=== PATIENT | female | born 2000 | race Caucasian/White ===

== ENCOUNTER → 2023-05-28 14:54 | Outpatient (CLI) | payer OTHER, SELFPAY ==
--- NOTE | 2023-05-28 | DI.US.S_ITS ---
PROCEDURE: US OB LIMITED INDICATIONS: GROWTH OUTSIDE/PRIOR DATING DATA: Last menstrual period (LMP): 11/15/2022. LMP-based estimated date of delivery (DONAVON): 08/22/2023. First dating scan (date and location): Unknown. Estimated date of delivery (DONAVON) from first dating scan: Unknown. The calculations are made using the working DONAVON of 08/22/2023. TECHNIQUE: Real-time scanning was performed of the fetus, with image documentation. Endovaginal scanning: None COMPARISON: None. FINDINGS: A single living intrauterine gestation is present. Presentation: Vertex. Placenta: Placental position is posterior, without previa. Amniotic fluid index: 15.4 cm, normal range is 5-24 cm. Single deepest vertical pocket is 4.3 cm. heart rate: 149 beats per minute. Maternal cervical canal: 3.2 cm long. Normal lower limit is 2.5 cm. BPD 7.6 cm, 30 week 5 day HC 28 cm, 30 week 4 day AC 24.8 cm, 29 week 0 day FL 5.5 cm, 29 week 1 day Clinically estimated gestational age: 27 week 5 day Estimated gestational age from initial scan: 29 week 6 day. EFW 1380, 93 percentile 2 vessel cord identified. IMPRESSION: Single live degenerative consistent with 29 week 6 day gestation. Two vessel cord EFW 93 percentile Approved by: Geovany Zavaleat M.D. on 05/28/2023 at 19:34
== END ==
PROVIDERS: Referring Provider Nurse Practitioner Obstetrics & Gynecology; Visit Provider Nurse Practitioner Obstetrics & Gynecology
DX: O09.93 Supervision of high risk pregnancy, unspecified, third trimester (principal); O28.3 Abnormal ultrasonic finding on antenatal screening of mother; Z3A.29 29 weeks gestation of pregnancy
CPT/HCPCS: 76815

== ENCOUNTER → 2023-07-23 10:18 | Outpatient (CLI) | payer OTHER, SELFPAY ==
--- NOTE | 2023-07-23 10:20 | DI.US.S_ITS ---
PROCEDURE: US OB LIMITED INDICATIONS: GROWTH OUTSIDE/PRIOR DATING DATA: Last menstrual period (LMP): November 15, 2022. LMP-based estimated date of delivery (DONAVON): August 22, 2023. First dating scan (date and location): May 28, 2023, [facility]. Estimated date of delivery (DONAVON) from first dating scan: August 22, 2023 TECHNIQUE: Real-time scanning was performed of the fetus, with image documentation and biometric measurements. Endovaginal scanning: Not performed COMPARISON: [facility], , OB LIMITED, 05/28/2023, 15:14. FINDINGS: General: A single living intrauterine gestation is present. Presentation: Vertex. Placenta: Placental position is posterior , without previa. Amniotic fluid index: 13.2 cm, normal range is 5-24 cm. Single deepest vertical pocket is 4.8 cm. heart rate: 125 beats per minute. Maternal cervical canal: 3.6 cm long. Normal lower limit is 2.5 cm. biometrics: Biparietal diameter: 9.5 cm, 38 weeks 6 days Head circumference: 34.7 cm, 40 weeks 2 days Abdominal circumference: 32.9 cm, 36 weeks 6 days Femur length: 7.3 cm, 37 weeks 2 days Clinically estimated gestational age: 35 weeks 5 days Composite gestational age from present scan: 38 weeks 2 days Estimated weight and percentile: 3139 g, 84% Other: Not applicable. IMPRESSION: 1. Single live intrauterine gestation with a composite gestational age of 38 weeks, 2 days which is concordant with dates by initial scan. 2. Estimated weight percentile of 84%. We strive to produce accurate, complete, and clear reports of imaging services. To assist us in improving patient care, this report was composed using standard report templates and voice recognition software. Therefore, it may contain abnormal punctuation, insertions and/or omissions. Occasional wrong-word or sound-alike substitutions may occur. Though we review the report and make efforts to correct it, we do recommend that the report be read carefully in proper context to recognize any text inaccuracies. Dictated by: Jeanette Malone M.D. on 07/23/2023 at 17:08 Approved by: Jeanette Malone M.D. on 07/23/2023 at 17:11
== END ==
PROVIDERS: Referring Provider Nurse Practitioner Obstetrics & Gynecology; Visit Provider Nurse Practitioner Obstetrics & Gynecology
DX: O09.93 Supervision of high risk pregnancy, unspecified, third trimester (principal); O28.3 Abnormal ultrasonic finding on antenatal screening of mother; Z3A.38 38 weeks gestation of pregnancy
CPT/HCPCS: 76815

== ENCOUNTER 2023-08-09 09:01 | Inpatient (IN) | payer OTHER, MEDICAID, SELFPAY ==
--- NOTE | 2023-08-09 10:26 | P.HPOB_ITS ---
OB HPI Date/Time Date of admission: 08/09/23 Date Patient Seen: 08/09/23 Time Patient Seen: 10:00 History of Present Condition Chief complaint: L&D : 1 Para: 0 Estimated Date of Delivery: 08/22/23 Estimated Gestational Age (weeks): 38w1d Narrative: Leena Roblero is a 22 year old female at 38 weeks 1 day by unsure LMP, concordant with 9 week US. 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 She started Valacyclovir around 37 weeks for HSV II suppression. She did not have health insurance for most of her but enrolled in [id number] 2 days ago. At approximately 0230 this AM she noticed some bloody show. At 0430 she woke up to wet sheets under her and messaged CNM at 0730 to let us know. On arrival to L&D at approximately 0900, amnisure test was positive and fluid clear. She is feeling intermittent contractions, but they are not strong or regular, and is feeling movement. CNM discussed options for expectant management at home versus admission now with or without augmentation with pitocin. Leena would like to stay and initiate IV pitocin for augmentation of labor. Her dad and FOB will be joining her at soon. She is in good spirits, and feeling nervous and excited to meet baby Berta. History of Present care: good care, initiated at week # (9), number of visits (9) and pounds weight gain (33) Dating criteria: LMP confirmed by 1st trimester US Ultrasounds: normal 1st trimester US and abnormal US findings Abnormal ultrasound findings: Two vessel cord seen at 20-week ultrasound Obstetrical complications: other (Single Umbilical Artery) Medical complications: other (HSV II) Preadmission Labs Blood type: A (+) positive -: Antibody screen: negative, Cystic fibrosis screen: unknown, GBS status: negative, HBsAG: negative, HIV: negative, HSV 1: unknown, HSV 2: unknown and RPR/VDLR: negative -: Chlamydia screen: not detected and Gonorrhea screen: not detected -: Rubella: immune and Varicella: immune HCT: 33.4 HCAB: negative PAP: Normal (Has never had pap smear) Integrated screen: NIPS negative 1 hr GTT: 97 Prior (ies) History: Evaluation Evaluation Baseline heart rate: 125 Variability: Moderate (11-25) monitor accelerations: Absent Monitor Decelerations: Variable Contraction Frequency (minutes): 5 (5-7) Uterine Contraction Intensity: Moderate Status: Category ll Non-invasive Membranes Rupture Test: positive (Clear fluid) Comments: Cervical exam deferred due to PROM; CE on 07/30/23 1.5/50/-4 PFSH Medical History HSV (herpes simplex virus) anogenital infection Seizures Migraine without aura Anxiety Family History (Updated 08/09/23 @ 11:08 by Jyothi Viera CNM, JAY) Aunt Cancer Grandmother Heart disease Diabetes mellitus Social History marital status: unmarried,single number of children: 0 household members: family lives independently: No caregiver/support person: No occupational status: unemployed do you feel safe at home: Yes Smoking Status: Former smoker additional social history: Used marijuana prior to Meds Home Medications and Allergies Home Medications Medication Instructions Recorded Confirmed Type valacyclovir 500 mg tablet 500 mg PO Q12H 08/09/23 08/09/23 History Allergies Allergy/AdvReac Type Severity Reaction Status Date / Time Milk Containing Products AdvReac Mild Verified 08/09/23 11:42 (Dairy) Review of Systems Review of Systems ROS: Yes All systems reviewed with the patient and are negative except as otherwise documented OB Exam Vital signs Blood Pressure: 107/69 Pulse Rate: 65 Temperature: 97.0 F Resp Effort & Inspection: normal respiratory effort and able to speak in complete sentences Auscultation: clear to auscultation bilaterally Cardio Rate: regular rate Rhythm: regular rhythm Heart Sounds: S1 normal and S2 normal Presentation: vertex (by bedside ultrasound) Amniotic Fluid: clear Objective Labs 08/09/23 10:30 Assessment and Plan Assessment and Plan Assessment and Plan narrative: Assessment: Early labor of term primip Rh positive SROM at 0430 GBS negative Repeat GC/CT testing indicated vertex RAYMOND presentation, non-flexed FHR Cat 2 Plan: Admit to labor Augmentation of labor with pitocin Continuous monitoring Recommend Leena sit on ball to promote head flexion Epidural when contractions become painful Repeat GC/CT testing d/t risk for STI Anticipate NSVB Note signed late due to awaiting health insurance confirmation.
[2023-08-09 10:38] LABS: Add Manual Diff / Slide Review NO; Basophils Absolute Auto 0 /uL (0-100); Basophils Percent Auto 0.5 % (0-2); Eosinophils Absolute Auto 0 /uL (0-450); Eosinophils Percent Auto 0.5 % (2-4); Hematocrit 36.8 % (36-46); Hemoglobin 12.4 g/dL (12.0-16.0); Lymphocytes Absolute Auto 1700 /uL (1100-4500); Lymphocytes Percent Auto 20.9 % (25-40); Mean Corpuscular HGB Conc 33.7 % (30-36); Mean Corpuscular Hemoglobin 30.9 PG (26-34); Mean Corpuscular Volume 91.7 fL (80-100); Monocytes Absolute Auto 700 /uL (0-900); Monocytes Percent Auto 9.2 % (3-14); Neutrophils Absolute Auto 5600 /uL (1500-7000); Neutrophils Percent Auto 68.9 % (50-75); Platelet Count 291 X10^3/uL (150-400); Red Blood Cell Count 4.01 X10^6/uL (4.0-5.2); Red Cell Distribution Width 13.3 % (11.6-14.8); White Blood Cell Count 8.1 X10^3/uL (4.5-11.0)
[2023-08-09] MEDS: LACTATED RINGERS 1,000 ML 100 ML IV (10:58)
[2023-08-09] MEDS: OXYTOCIN PREMIX 30 UNIT/500 ML PLAST..BAG IV (10:58)
[2023-08-09 11:27] VITALS: BP 107/69; PULSE 65; TEMP 36.1
[2023-08-09] MEDS: ONDANSETRON 4 MG/2 ML INJ IV ×2 (15:18→21:05)
--- NOTE | 2023-08-09 16:11 | PM.AN.REGBLK ---
Regional Block Pre-procedure Procedure: Continuous Lumbar Epidural for L&D (with dural puncture ) Attending OB provider: Jyothi Viera PMH/ROS narrative: 22yo female in labor requesting epidural. See pre-anesthesia assessment for further details. ASA Class: II Labs: Hct 36.8 % (36-46) 08/09/23 10:30 Plt Count 291 X10^3/uL (150-400) 08/09/23 10:30 Medications: Current Medications Generic Name Dose Route Start Last Admin Trade Name Freq PRN Reason Stop Dose Admin Acetaminophen 650 mg 08/09/23 10:22 Acetaminophen 325 Mg Tablet PO Q4H PRN Fever/Mild Pain (1-3) Calcium Carbonate 1,000 mg 08/09/23 10:22 Calcium Carbonate 500 Mg Tab PO Q4HR PRN Dyspepsia Carboprost Tromethamine 250 mcg 08/09/23 10:22 Carboprost 250 Mcg/Ml Ampul IM Q90M PRN Bleeding Diphenhydramine HCl 25 mg 08/09/23 15:36 Diphenhydramine 50 Mg/Ml Vial IV Q10M PRN Pruritis Ephedrine Sulfate 10 mg 08/09/23 15:36 Ephedrine 50 Mg/Ml Vial IV Q5M PRN Blood pressure decrease more than 20% of baseline. Fentanyl 50 mcg 08/09/23 10:22 Fentanyl 100 Mcg/2 Ml Inj IV Q1H PRN Pain, Moderate (4-6) Oxytocin/Lactated Ringer's 30 unit in 500 mls @ 200 mls/hr 08/09/23 10:22 Oxytocin Premix IV CONT PRN Bleeding Protocol Tranexamic Acid 1,000 mg/ 100 mls @ 200 mls/hr 08/09/23 10:22 Sodium Chloride IV NOW PRN Bleeding Oxytocin/Lactated Ringer's 30 unit in 500 mls @ 2 mls/hr 08/09/23 10:30 08/09/23 10:58 Oxytocin Premix IV 2 milliunit/min TITRATE KRUPA 2 mls/hr Administration Protocol 2 MILLIUNIT/MIN Lactated Ringer's 1,000 mls @ 100 mls/hr 08/09/23 10:30 08/09/23 10:58 Lactated Ringers IV 100 mls/hr CONT KRUPA Administration FENT 2MCG/ML BUPIV 0.125% EPI 200 mcg in 100 mls @ 6 mls/hr 08/09/23 15:45 Fentanyl/Bupiv/Ns 2mcg/Ml - 0.125% EPIDURAL CONT KRUPA Lidocaine HCl 20 ml 08/09/23 10:22 Lidocaine 1% 20 Ml INJ INTRA-OP PRN Post Delivery Methylergonovine Maleate 0.2 mg 08/09/23 10:22 Methylergonovine 0.2 Mg Tablet PO Q6HR PRN Heavy Bleeding Methylergonovine Maleate 0.2 mg 08/09/23 10:22 Methylergonovine 0.2 Mg/Ml Vial IM NOW PRN Bleeding Mineral Oil 30 ml 08/09/23 10:22 Mineral Oil 30 Ml Udc TOP PRN PRN Version Misoprostol 800 mcg 08/09/23 10:22 Misoprostol 200 Mcg Tablet UT NOW PRN Bleeding Misoprostol 400 mcg 08/09/23 10:22 Misoprostol 200 Mcg Tablet SL NOW PRN Bleeding Nalbuphine HCl 2.5 mg 08/09/23 15:36 Nalbuphine 20 Mg/Ml Ampul IV Q10M PRN Pruritis Naloxone HCl 0.2 mg 08/09/23 10:22 Naloxone 0.4 Mg/Ml Vial IV Q2MIN PRN Opiate Reversal Ondansetron HCl 4 mg 08/09/23 10:22 08/09/23 15:18 Ondansetron 4 Mg/2 Ml Inj IV 4 mg Q4HR PRN Administration Nausea And Vomiting Oxytocin 10 unit 08/09/23 10:22 Oxytocin 10 Unit/Ml Vial IM NOW PRN Bleeding Sodium Chloride 10 ml 08/09/23 21:00 Sodium Chloride 0.9% Flush IV BID KRUPA Sodium Chloride 10 ml 08/09/23 10:22 Sodium Chloride 0.9% Flush IV PRN PRN Flush Valacyclovir HCl 500 mg 08/09/23 21:00 Valacyclovir 500 Mg Tablet PO BID [facility] Allergies: Allergies Allergy/AdvReac Type Severity Reaction Status Date / Time Milk Containing Products AdvReac Mild Verified 08/09/23 11:42 (Dairy) Procedure Insertion date: 08/09/23 Insertion time: 15:22 Prep/Local: 1% lidocaine (Chloraprep) Interspace: L3-4 Patient position: sitting Needle: 18 gauge Meñotead Loss of resistance with: saline CARLOS at (cm): 5 Catheter placed at SKIN (cm): 12 Catheter in SPACE (cm): 7 Insertion: Yes CSF, No Blood, Yes Paresthesia with insertion, No Paresthesia with injection and No Test dose reaction Initial Medications TEST DOSE time: 15:23 TEST DOSE: 1.5% lidocaine with epinephrine 1:200k (mL): 3 BOLUS DOSE time: 15:24 BOLUS DOSE (mL): 2 BOLUS DOSE med: other (Same) Infusion INFUSION: 0.125% bupivacaine and with fentanyl 2 mcg/mL Initial rate (mL/hr): 8 Subsequent interventions: Pump started 15:35. Pt is cheerful, moving BLE, and reports much improved labor pain. 19:25 - Checked on pt. Cheerful, moving BLE. Reports occ feeling contractions and some hip pain that sounds more musculoskeletal from lying in bed. Epidural rate increased from 8 to 10 but no other changes made. KR Post-procedure Anesthesia date START: 08/09/23 Anesthesia time START: 15:15 Anesthesia date END: 08/09/23 Anesthesia time END: 22:23 Post-procedure Anesthesia Assessment: Yes CV function: HR/BP stable, Yes Resp function: RR/sat/airway adequate, Yes Post-op hydration adequate, Yes Pain control adequate, Yes Nausea & vomiting absent, Yes Temperature > 36 C, Yes Mental status appropriate and No Anesthesia complications
[2023-08-09 19:01] LABS: Urine N gonorrhoeae NOT DETECTED
[2023-08-09 19:03] LABS: Urine Chlamydia NOT DETECTED
[2023-08-09] MEDS: FENT 2MCG/ML BUPIV 0.125% EPI 200 MCG/100 ML PLAST..BAG 6 MCG EPIDURAL (20:38)
[2023-08-09] MEDS: valACYclovir 500 MG TABLET PO (21:05)
--- NOTE | 2023-08-09 23:04 | PM.OBPRVD ---
Events: Labor Augmentation and Meconium Stained Fluid Labor & Delivery Delivery date: 08/09/23 Cervical ripening method: none Induction method: none Delivery augmentation: pitocin Delivery monitor: external FHT and external uterine Route of delivery: L&D Laceration Description: Periurethral - 1st Degree Delivery repair: other (None needed) Quantitative Blood Loss: 130 Anesthesia Type: Epidural Narrative: At 2136 CNM performed CE and Leena was 10/100/+3 and feeling increased rectal pressure. RT was present d/t meconium-stained fluid in labor. Leena began to push at 2144 and pushed effectively for a short 2nd stage of 38 minutes. FHR was category 2 throughout 2nd stage. NSVB of baby at 2222 with nuchal hand on anterior shoulder. Baby was placed on maternal abdomen immediately for skin to skin per her request. Apgars 9,9. They remained skin to skin while cord was cut. AMTSL initiated immediately prior to delivery of placenta. Placenta delivered spontaneously with maternal efforts and appeared to be intact. 2 vessel cord clamped and cut at 5 minutes of life after cord pulsing had stopped. Cord blood collected for blood typing. Perineum inspected and found to be intact. Shallow periurethral lacerations noted bilaterally and not requiring repair. Blood loss measured and estimated loss is 130 mL. Mom and baby left stable and is being initiated. Leena and her family and friends are thrilled to meet baby Berta. Jyothi THOMPSON, CNM, IBCLC [facility]: gender: Male Presentation: vertex Position: Left Occiput Anterior Placenta delivery description: Spontaneous and Normal Configuration Cord Vessel Description: 2 Vessels score (1 min): 9 score (5 min): 9 weight: 3.192 kg Plan for aftercare: Routine care
--- NOTE | 2023-08-09 23:22 | PM.OBPNLAB ---
Date/Time Date Patient Seen: 08/09/23 Time Patient Seen: 15:00 Pain Control Pain control: epidural Comments: Leena's contractions have become more intense and she is now requesting an epidural. Vitals BP: 116/66 HR: 60 bpm Spo2: 99% T: 36.6 C Pelvic Exam Dilation (cm): 4 Effacement (%): 80 station: -2 Amniotic membrane status: Ruptured Contractions Contractions on admission: irregular Monitor mode: External Pitocin rate (mU/min): 4 Contraction frequency (min): 1 (1-2 ) Contraction duration (min): 1 (1-1.5) Contraction pattern: Regular Contraction intensity: Moderate Status status: Category ll Heart Rate Baseline: 130 Monitor Accelerations: Present Monitor Decelerations: Late Monitor Variability: Moderate Comments: Overall reassuring Assessment and Plan Assessment: active labor Plan: continuous present management
--- NOTE | 2023-08-09 23:35 | PM.OBPNLAB ---
Date/Time Date Patient Seen: 08/09/23 Time Patient Seen: 19:00 Pain Control Pain control: epidural Comments: Leena's epidural is effective and she is coping well with labor. Vitals BP: 116/72 HR: 72 bpm Spo2: 96% T: 98.2 F Pelvic Exam Dilation (cm): 7.5 Effacement (%): 100 station: 0 Amniotic membrane status: Ruptured Contractions Monitor mode: External Pitocin rate (mU/min): 0 Contraction frequency (min): 1 (1.5-2.5 ) Contraction duration (min): 1 (1-1.5 ) Contraction pattern: Regular Contraction intensity: Moderate Status status: Category l Heart Rate Baseline: 120 Monitor Accelerations: Present Monitor Decelerations: Absent Monitor Variability: Moderate Comments: 2 deep, late decelerations while murguia catheter was being placed. Pitocin turned off then restarted. FHR Cat 1 since then. Assessment and Plan Assessment: active labor Plan: continuous present management Comments: Assessment: Active labor FHR cat 1 Plan: Turn off pitocin due to active labor pattern Recheck at 2200 or sooner PRN Anticipate NSVB
[2023-08-10] MEDS: DERMOPLAST SPRAY 20% 60 ML 1 SPRAY TOP (00:31)
[2023-08-10] MEDS: IBUPROFEN 600 MG TABLET PO ×4 (00:31→18:07)
[2023-08-10] MEDS: SENNOSIDES 8.6 MG TABLET PO (00:32)
[2023-08-10] MEDS: ACETAMINOPHEN 325 MG TABLET 650 MG PO ×4 (00:32→18:08)
[2023-08-10 01:20] VITALS: BP 107/69
[2023-08-10 12:00] LABS: Ur Creatinine Normal (Normal); Ur Specific Gravity Normal (Normal); Urine pH Normal (Normal)
[2023-08-10 12:01] LABS: UR Morphine/Opiate cutoff 300 Negative (Negative); Urine Amphetamines Negative (Negative); Urine Barbiturates Negative (Negative); Urine Benzodiazepines Negative (Negative); Urine Cocaine Positive (Negative); Urine MDMA Negative (Negative); Urine Methadone Negative (Negative); Urine Methamphetamines Negative (Negative); Urine Oxycodone Negative (Negative); Urine Phencyclidine Negative (Negative); Urine Tetrahydrocannabinol Positive (Negative); Urine Tricyclic Antidepressant Negative (Negative)
--- NOTE | 2023-08-10 15:48 | CM.SWNOTE ---
[employer] Note This [employer] requested for consult initially to assist mom and family with securing health insurance. By the end of this day, 08/10/23, learned mom's urine screen positive for THC and Cocaine, mom admits to THC use only. Regarding health insurance: [place] from Vivian Lay, Admissions Counselor/IPA (In-Person Assistor), P: [phone]; F: [phone] that mom has been covered under her father's [facility] [employer] ([employer]) coverage as a dependent. Vivian [facility], spoke with Tariq call ref #[id number] who stated patient does NOT have maternity coverage as a dependent and thus mom and baby do not have medical coverage under [facility]. Vivian reports to this SUPERVIS[employer] that: Baby would be covered under mom if she qualifies for [employer] for 21 days and then will need their own policy. Baby will need a SSN to sign up so mom will need to get one as soon as she can. We can help add baby at that time or she can call the [employer] directly at [phone]. Vivian learned and reported to this SUPERVISOR [employer] that mom now does have [employer] health, as mom and her father have been working to secure her MARIA LUISA on the [employer], and mom chose [employer]. Vivian reports [facility] is not in network with [employer] MARIA LUISA and so mom may need to switch prior to August 24, mom and her father stated understanding. In addition, mom's providerOne number cannot be confirmed for another 24 hours and if there is no one in admitting this weekend, may not be able to be confirmed until Sunday. Provided summary of above to MARISABEL Mendez RN Please see next [employer] note for additional information and further assessment of need. Melvi Santos, SUPERVISOR [employer]ES
--- NOTE | 2023-08-10 16:03 | CM.SWNOTE ---
[employer] Note This [employer] requested for consult initially to assist mom and family with securing health insurance. By the end of this day, 08/10/23, learned mom's urine screen positive for THC and Cocaine, mom admits to THC use only. See prior [employer] note for information regarding health insurance. According to RN, mom bonding properly with baby, mom working on getting baby boy to latch. RN reports no concern initially with mom returning home to her father's house with outpatient follow up. This [employer] met w/mom and EDEL Mendez in room this morning to discuss health insurance. Mom reported she was planning on discharging back to her father's home in [place] where she had all her baby gear ready. Mom reported no concerns with access to basic needs, family to help with transportation, mom had consistent care and planned to follow up consistently with care. [place] after this visit w/mom from staff that the following family members had been in to visit over the last 24 hours: Father of mom; paternal grandpa had been appropriate, no behavioral concerns noted Mother of mom; maternal grandma had visited with a community development worker (?) and reportedly is actively using meth Father of baby; Robert, visited last evening, throwing up, reportedly withdrawing from active cocaine use, MOB confirms This [employer] asks for tox screen; ordered by Jyothi Viera. UA came back positive for Cocaine and THC. Met w/mom to discuss; mom denies ever using any illicit substance, no heavy ETOH. Mom admits FOB uses Cocaine off and on. Mom admits that her mom has been using meth all her life. Mom denies her father uses any illicit drugs. Mom becomes increasingly hysterical, denies using Cocaine and asks if she can have a positive UA from having sex with FOB. Updated mom that CPS report would be made for safety concern for baby. Updated EDEL Mendez with above. Proceeded to call CPS; able to speak with Edwar Lopez in intake, ref # [id number]. Discussed this case. [place] from Edwar that this case was going to screen out (no investigator welfare assigned) at this time because new [facility] in [facility] has deemed that (summarize): Substance exposure in utero alone does not qualify a /CPS report to get a CPS worker assigned. There needs to be substance exposure and substance affected newborns ie baby with withdrawal symptoms in order for a report to be screened in and an investogator assigned. Edwra suggested a hold for 72 hour to observe baby for any s/sx of withdrawal. Another CPS report could be made if s/sx of w/d appear. Discussed above with EDEL Mendez. This [employer] unable to return to MOB's bedside to complete a safety assessment and discuss next steps in this plan of care. Strongly suggested to EDEL Mendez that as there is no current CPS investigation, the baby's spray drier operator, the provider that will discharge this baby, will need to feel confident that a secure and safe plan for baby has been identified before discharge. EDEL Mendez states agreement and will discuss with providers. SHUBHAM Gonzales
--- NOTE | 2023-08-10 19:55 | PM.OBPN.1 ---
Subjective - OB Subjective Interval history: Leena feeling good physically today. going well; worked on hand expression successfully this morning. Voiding regularly without pain; has not had a stool yet. Tailbone is sore. Did not appreciate messaging by BUTTERMAKER CONTINUOUS CHURN today re: positive tox screen. Calmed herself down and was receptive to conversation from RN, CNM, SNM. Admits to using marijuana use regularly during ; father and BF use marijuana regularly so she does not consider it a drug since it is legal now. Last use of marijuana was either Sunday night or Sunday night. Robert was using cocaine those nights. He snorts cocaine powder. Leena strongly denies use of cocaine at any point during . Very upset to hear that she tested positive and eager to get confirmation results. Consents to staying in hospital until at least Sunday. Got on phone today and confirmed she has state insurance through [employer]. Exam Vital Signs (past 8 hours): BP 114/75 HR 68 bpm HR 16/min Temp 99.4 F, temporal Const General: cooperative and comfortable HENMT Head: normal to inspection Resp Effort & Inspection: normal respiratory effort Other: Fundus firm at U, midline. Lochia moderate Perineum intact with minimal edema Skin General: no rashes or lesions noted Neuro General: patient alert, patient awake and patient oriented x3 Extrem General: normal to inspection and full ROM Psych Appearance: grossly normal Mental Status: mental status grossly normal Speech and Movement: speech clear and pressured speech Mood: anxious mood and irritable mood Affect: normal affect Attitude: cooperative Thought Process: normal Thought Content: normal Judgment: judgment good Objective Labs 08/09/23 10:30 Labs: Laboratory Results - last 24 hr 08/09/23 11:47 U Opiates 300ng/mL cut Negative Ur Oxycodone Screen Negative Urine Methadone Screen Negative Ur Barbiturates Screen Negative U Tricyclic Antidepress Negative Ur Phencyclidine Scrn Negative Ur Amphetamines Screen Negative U Methamphetamines Scrn Negative Ur MDMA Scrn (Ecstasy) Negative U Benzodiazepines Scrn Negative Urine Cocaine Screen Positive H U Marijuana (THC) Screen Positive H Urine pH Normal Urine Specific [place] Normal Ur Creatinine Normal Assessment & Plan Assessment and Plan (1) Supervision of normal first in third trimester: Status: Acute (2) (normal spontaneous vaginal delivery): Status: Acute (3) Marijuana use: Status: Acute (4) Drug use affecting : Status: Acute (5) Patient is a currently breast-feeding mother: Status: Acute Plan day: 0 plan OB: routine care Comments: Reviewed pos tox screen with Dr. Camilo who recommended confirmation. Blood and urine toxicology confirmation labs sent to [facility] for stat testing. Reviewed positive tox screen with Leena and Robert. Asked them both to not use any substances while in hospital and specified marijuana, cocaine, vaping/nicotine. Reviewed plan for re: eat, sleep, console, send tox screen with meconium and urine. Reviewed normal information, including recommending rest, recovery, good fiber and hydration, nina to keep for now. Will re-evaluate plan when lab tests come back. Worked with Leena and her dad to confirm state health insurance is in place. Provided support and answered questions to apparent satisfaction. Anticipate discharge 08/13/23. Time Spent With Patient Time: Total time spent is greater than 50% in coordination of care (as documented) at patient's floor/unit and/or counseling patient: Time with patient: Greater than 35 minutes
[2023-08-11] MEDS: IBUPROFEN 600 MG TABLET PO ×4 (01:27→23:22)
[2023-08-11] MEDS: ACETAMINOPHEN 325 MG TABLET 650 MG PO ×4 (01:27→23:22)
--- NOTE | 2023-08-11 09:02 | CM.SWNOTE ---
Social Work Consult Cont. Received call from the RN at the center that this pt's baby boy is now showing signs of withdrawal symptoms. Mom was positive for cocaine and THC yesterday, and a CPS report was done then by another one of the social workers. This SIGNAL OPERATOR LINGUIST called CPS again today and provided an updated report re: baby's symptoms. It was screened in and will have f/u. Case Reference# [id number]
[2023-08-11] MEDS: MAGNESIUM HYDROXIDE 30 ML UDC PO (12:24)
--- NOTE | 2023-08-11 14:59 | PM.OBPN.1 ---
Subjective - OB Subjective Interval history: Leena is feeling good. Has not had a stool yet, but is voiding just fine. Some dizziness and vomiting, but overall feeling good. Enjoying her baby. Saw Dr. Camilo this morning, and had questions about how long the baby will be staying. Okay pumping and not for now. Exam Vital Signs (past 8 hours): 120/66 78 bpm 99.3 F 98% Psych Appearance: grossly normal Mental Status: mental status grossly normal Speech and Movement: pressured speech Mood: congruent mood and anxious mood Affect: normal affect Attitude: cooperative Thought Process: loose association Thought Content: normal Objective Labs 08/09/23 10:30 Labs: Laboratory Results - last 24 hr 08/10/23 12:50 Ref Test (Refrig) Comment Assessment & Plan Assessment and Plan (1) Supervision of normal first in third trimester: Status: Acute (2) (normal spontaneous vaginal delivery): Status: Acute (3) Marijuana use: Status: Acute (4) Drug use affecting : Status: Acute (5) Patient is a currently breast-feeding mother: Status: Acute Assessment and plan: d/c while awaiting confirmatory results of drug testing. Pump and save milk. Plan day: 1 plan OB: routine care (plan for discharge Sunday.) Comments: Reviewed plan to stay until at least Sunday. Reviewed that labs are not back yet; may take a few more days. Time Spent With Patient Time: Total time spent is greater than 50% in coordination of care (as documented) at patient's floor/unit and/or counseling patient: Time with patient: 15-24 minutes
[2023-08-12] MEDS: ACETAMINOPHEN 325 MG TABLET 650 MG PO ×3 (06:44→20:52)
[2023-08-12] MEDS: IBUPROFEN 600 MG TABLET PO ×3 (06:45→20:52)
--- NOTE | 2023-08-12 15:04 | PM.OBPN.1 ---
Subjective - OB Subjective Interval history: Leena feels her milk coming in, breasts are heavy and she pumped 2 oz earlier. Happy holding her baby, but not doing skin to skin. Tearful discussing concerns about her grandmother (who is 102) and really wants to go home. Says she does not have withdrawal symptoms from marijuana use. Plans to go home with her dad. Exam Vital Signs (past 8 hours): 104/65 65 bpm 15/min 97.9 F temporal 98% Objective Labs 08/09/23 10:30 Labs: Laboratory Results - last 24 hr 08/10/23 12:50 Ref Test (Refrig) Comment Assessment & Plan Assessment and Plan (1) Supervision of normal first in third trimester: Status: Acute (2) (normal spontaneous vaginal delivery): Status: Acute (3) Marijuana use: Status: Acute (4) Drug use affecting : Status: Acute Assessment and plan: Positive for cocaine on drug screen; confirmatory testing still pending (5) Patient is a currently breast-feeding mother: Status: Acute Assessment and plan: paused; pumping and saving milk while formula feeding. Plan day: 2 plan OB: routine care (consider discharge tomorrow, but likely baby will not be discharged until at least Sunday. ) Comments: Discussed that her dad can get [place] paperwork and take time off if desired. CNM can sign paperwork. Reviewed labs still not back yet. Recommend lots of skin to skin to [place] with baby and to help her stay calm. Time Spent With Patient Time: Total time spent is greater than 50% in coordination of care (as documented) at patient's floor/unit and/or counseling patient: Time with patient: 15-24 minutes
[2023-08-13] MEDS: ACETAMINOPHEN 325 MG TABLET 650 MG PO ×3 (03:37→16:03)
[2023-08-13] MEDS: IBUPROFEN 600 MG TABLET PO ×3 (03:37→16:03)
--- NOTE | 2023-08-13 09:21 | CM.SWNOTE ---
Addendum entered by SHUBHAM Hartmann 08/13/23 16:16: Per EDEL Owens, CPS visit went well today. CPS determined it is a safe home plan, plan is to dc mom and baby today. Mom set up with [facility] and insurance questions were answered. RN denies need from this MALWARE ANALYST at this time. SL Addendum entered by SHUBHAM Hartmann 08/13/23 10:28: Per Gypsy/Rosio HOLLINGSWORTH, CPS plans to do a house visit today. If all checks out appropriately with the house check, possible dc today for baby and mom. Per RN, CPS does not need to see the final meconium results at this time for safe dc home. RN said CPS also assisting in insurance questions. RN reports no additional CM/MALWARE ANALYST needs at this time. TIFFANY Original Note: MALWARE ANALYST note MALWARE ANALYST reviewed EMR. Case Reference# [id number] Per previous MALWARE ANALYST notes, it appears current DCP is for mom and baby to go to mom's dad's house (baby maternal grandfather) in [place]. Per RN in , no changes to baby or mom since CPS saw them Sunday. RN reports baby doing well, no new withdrawals at this time. Meconium results pending. Per Sunday mom PN, anticipate mom dc today, Sunday, but keep baby until Sunday. MALWARE ANALYST spoke with Arian, CPS assigned worker ([phone], f [phone]) and updated her on above information. Arian appreciative. Asked any new results or updates be sent to her directly. Plans to call mom today. MALWARE ANALYST team will continue to follow closely. SHUBHAM Hartmann
[2023-08-13 19:46] VITALS: BP 107/69; PULSE 65; RESP 15; TEMP 36.1
--- NOTE | 2023-08-13 21:42 | P.DS_ITS ---
Discharge Providers Provider Date of admission: 08/09/23 09:01 Discharge Date: 08/13/23 Primary care physician: Jyothi Viera CNM, ARNP Consults: 08/09/23 10:23 Consult to Anesthesiology Urgent Comment: Consulting Provider: Anesthesiologist Reason for consultation: Epidural Has provider been notified: No 08/09/23 23:36 Consult to Thread Machine Operator Routine Comment: 08/09/23 23:59 Consult to MANAGER OF COMPENSATION - Thread Machine Operator Routine Comment: assist with ensuring she has health insurance 08/10/23 23:49 Consult to Patrol Man Routine Comment: Discharge provider: Jyothi Viera CNM, ARNP Summary Hospital Course Date Patient Seen: 08/13/23 Time Patient Seen: 18:00 Diagnoses: Normal Spontaneous Vaginal Delivery Marijuana Use Drug use affecting Hospital Course: Leena spent 4 days inpatient after her NSVB on 08/09/2023 because her urine tox came back positive for marijuana and cocaine. Confirmatory maternal serum tests and infant urine and meconium tests sent on 08/10/23 and all are still pending except urine test which was negative for cocaine and positive for marijuana, consistent with Leena's report. Discharged after 4 days of reassuring monitoring. Leena has returned to after temporary pause recommended by senior structural engineerTon. She is discharging to her dad's home where she and Berta will live. CPS performed visit of her dad's home today (08/13/23) and cleared Leena and Berta to stay there. Peripartum Data Infant Delivery Method: Natural Vaginal Laceration Description: Periurethral - 1st Degree complications: none Maynard 1: Gender: Male Disposition of : home Discharge Diagnosis (1) Supervision of normal first in third trimester: Status: Acute (2) (normal spontaneous vaginal delivery): Status: Acute (3) Marijuana use: Status: Acute (4) Drug use affecting : Status: Acute (5) Patient is a currently breast-feeding mother: Status: Acute Status at Discharge Cognitive/behavioral status at discharge: oriented Functional status at discharge: independent ambulation Overall status at discharge: patient is not back to baseline Time Spent with Patient Time attestation: Total time spent providing and/or coordinating discharge services: 3 hours Time spent: Greater than 30 minutes Specific discharge activities: Providing discharge education and coordinating health insurance, CPS home visit, and visits with [facility]. Time spent discussing smoking cessation with patient: more than 10 minutes Objective Labs 08/09/23 10:30 Exam Vital Signs (past 8 hours): - 08/13/23 19:46 Temperature 97.0 F L Pulse Rate 65 Respiratory Rate 15 Blood Pressure 107/69 Discharge Plan Discharge Plan Patient Disposition: Home Discharge orders & Medications Prescriptions: Discontinued valacyclovir 500 mg tablet 500 mg PO Q12H Follow up/Referrals: Jyothi Viera, TACHO, US ADMINISTRATIVE LAW JUDGE [Advanced Reeling Machine Setup Operator] - 2 Weeks (2 week visit as scheduled 08/22/2023 at 1:15 pm 6 week visit as scheduled 09/19/23 at 1:30 pm) Discharge Health Status Health Concerns: Substance use Diet/Activity/Treatments Diet: Diet as Tolerated and Regular Diet comment: Normal, friendly Activity: Rest x 2 weeks Cold/Heat Therapy: PRN for uterine cramping Skin/Wound/Dressing Care Report to your healthcare provider any signs of infection, such as:: chills, fever, night sweats, increased pain and unusual drainage Visit Report/Discharge Packet Stand Alone Forms: Patient Portal/API, Stroke Signs & Symptoms
== END 2023-08-13 20:00 | disposition home or self-care (01) | DRG 560 ==
PROVIDERS: Advanced Practice Midwife; Admitting Provider Nurse Practitioner Obstetrics & Gynecology; Referring Provider Nurse Practitioner Obstetrics & Gynecology; Visit Provider Nurse Practitioner Obstetrics & Gynecology
DX: O98.32 Other infections with a predominantly sexual mode of transmission complicating childbirth (principal); A60.9 Anogenital herpesviral infection, unspecified; Z3A.38 38 weeks gestation of pregnancy; Z37.0 Single live birth; O69.89X0 Labor and delivery complicated by other cord complications, not applicable or unspecified; O76 Abnormality in fetal heart rate and rhythm complicating labor and delivery
CPT/HCPCS: 36415; 59050; 80305; 84112; 85025; 86850; 86900; 86901; 87491; 87591; G0379; J2405; J2590